=== PATIENT | female | born 1960 | race Two or more races ===

== ENCOUNTER → 2019-10-02 08:11 | Outpatient (CLI) | payer OTHER | END | disposition home or self-care (01) | LOC: LAB 07:57 | DX: Z12.11 Encounter for screening for malignant neoplasm of colon (principal); D64.89 Other specified anemias; E03.8 Other specified hypothyroidism; N95.1 Menopausal and female climacteric states; I10 Essential (primary) hypertension; C51.8 Malignant neoplasm of overlapping sites of vulva; N30.00 Acute cystitis without hematuria; E83.51 Hypocalcemia; A64 Unspecified sexually transmitted disease; R97.8 Other abnormal tumor markers ==

== ENCOUNTER 2019-10-02 09:26 | Outpatient (CLI) | payer OTHER | END 2019-10-02 09:31 | disposition home or self-care (01) | LOC: MAMO-SONO 09:26 | DX: Z12.31 Encounter for screening mammogram for malignant neoplasm of breast (principal); N60.11 Diffuse cystic mastopathy of right breast; N60.12 Diffuse cystic mastopathy of left breast ==

== ENCOUNTER 2019-10-02 11:23 | Outpatient (CLI) | payer OTHER | END 2019-10-02 11:59 | disposition home or self-care (01) | LOC: NUCLEAR 11:23 | DX: M81.0 Age-related osteoporosis without current pathological fracture (principal) ==

== ENCOUNTER 2019-10-06 10:08 | Outpatient (CLI) | payer OTHER | END 2019-10-06 10:14 | disposition home or self-care (01) | LOC: SONOGRAMA 10:08 | DX: E04.1 Nontoxic single thyroid nodule (principal) ==

== ENCOUNTER 2021-07-06 06:34 | Outpatient (CLI) | payer OTHER | END 2021-07-06 06:35 | disposition home or self-care (01) | LOC: LAB 06:34 | PROVIDERS: ATTEND Specialist | DX: D64.89 Other specified anemias (principal); E03.8 Other specified hypothyroidism; Z12.11 Encounter for screening for malignant neoplasm of colon; N95.1 Menopausal and female climacteric states; I10 Essential (primary) hypertension; C51.8 Malignant neoplasm of overlapping sites of vulva; E83.51 Hypocalcemia; A64 Unspecified sexually transmitted disease; N39.0 Urinary tract infection, site not specified; R97.8 Other abnormal tumor markers; R79.89 Other specified abnormal findings of blood chemistry ==

== ENCOUNTER 2021-07-20 11:43 | Outpatient (CLI) | payer OTHER | END 2021-07-20 11:46 | disposition home or self-care (01) | LOC: MAMO-SONO 11:43 | PROVIDERS: ATTEND Specialist | DX: N60.11 Diffuse cystic mastopathy of right breast (principal); N60.12 Diffuse cystic mastopathy of left breast; N64.59 Other signs and symptoms in breast ==